=== PATIENT | female | born 1960 | race Caucasian/White ===

== ENCOUNTER 2016-05-23 15:48 | Emergency (ER) | payer OTHER ==
[~2016-05-23] VITALS: Ht 166.4 cm; Wt 78.9 kg
[~2016-05-23 15:48] MED LIST: AVELOX400 MG PO; FLEXERIL10 MG PO; IBU-6600 MG PO; KEFLEX500 M1 PO; MOTRIN 600 MG600 MG PO; MOTRIN600 MG PO; MOTRIN800 MG PO; OXYCODONE5 MG PO
--- NOTE | 2016-05-23 17:32 | ED MVC/FALL/TRAUMA COMPLAINT ---
History of Present Illness General Chief Complaint: General Adult Stated Complaint: LADDER FELL ON HER, RIGHT SIDED PAIN Source: patient Exam Limitations: no limitations Vital Signs & Intake/Output Vital Signs & Intake/Output Vital Signs Date Time Temp Pulse Resp B/P Pulse O2 O2 Flow FiO2 Ox Delivery Rate 05/23 1612 97.0 81 20 149/77 98 Room Air Allergies Coded Allergies: povidone-iodine (From BETADINE) (Intermediate, NAUSEA 05/23/16) soap (From BETADINE) (Intermediate, NAUSEA 05/23/16) Reconcile Medications Albuterol Sulfate (Proair Hfa) 90 MCG HFA.AER.AD 2 PUF INH Q4-6 PRN PRN ASTHMA (Reported) Aspirin (Ecotrin*) 81 MG TABLET.DR 1 TAB PO DAILY HEART/BLOOD (Reported) Cephalexin (Keflex) 500 MG CAPSULE 1 CAP PO TID cellulitis Cyclosporine (Restasis) 0.05 % DROPERETTE 1 GTT OPH BID BOTH EYES (Reported) Fluticasone Propionate 50 MCG/ACTUATION SPRAY.SUSP 2 SPRAY NASB DAILY ALLERGIES (Reported) Fluticasone/Salmeterol (Advair 250-50 Diskus) 250 MCG-50 MCG/DOSE BLST.W.DEV 1 PUF INH BID ASTHMA (Reported) Lisinopril 10 MG TABLET 1 TAB PO DAILY BP (Reported) Metformin HCl 500 MG TABLET 1 TAB PO DAILY DM (Reported) Triage Note: PT TO ED WITH C/O RIGHT BACK "GASH" AND RIGHT ARM BRUISING S/P LADDER FELL ON ME". INCIDENT HAPPENED AROUND NOON TIME TODAY. Triage Nurses Notes Reviewed? yes Onset: Abrupt Duration: constant Timing: single episode today Severity: moderate Severity Numbers: 5 Method of Injury: direct blow Loss of Consciousness: no loss of consciousness HPI: Patient is a 55-year-old female who presents emergency room stating that today in the standing position patient had a ladder fall on her where she braced the latter to strike her body with her right forearm were direct trauma had occurred and subsequently the ladder struck patient to the scapular region of her back resulting in skin abrasions. Patient denies any head strike. Patient did take ibuprofen with relief prior to arrival. No bleeding has occurred. Denies any shortness of breath. Denies any wrist pain and elbow pain neck pain or low back pain. Past History Travel History Traveled to [place] past 21 day No Medical History Any Pertinent Medical History? see below for history Neurological: NONE EENT: NONE Cardiovascular: hypertension Respiratory: asthma, pleurisy Gastrointestinal: NONE Hepatic: hepatitis B Renal: NONE Musculoskeletal: NONE Psychiatric: NONE Endocrine: NIDDM Blood Disorders: NONE Cancer(s): NONE LAWYER REAL ESTATE/Reproductive: NONE Surgical History Surgical History: non-contributory Psychosocial History What is your primary language Bahamian Tobacco Use: Never used ETOH Use: denies use Illicit Drug Use: denies illicit drug use Family History Hx Contributory? No Review of Systems Review of Systems Constitutional: Reports: no symptoms. Eyes: Reports: no symptoms. Ears, Nose, Throat, Mouth: Reports: no symptoms. Respiratory: Reports: no symptoms. Cardiovascular: Reports: no symptoms. Gastrointestinal/Abdominal: Reports: no symptoms. Genitourinary: Reports: no symptoms. Musculoskeletal: Reports: see HPI. Skin: Reports: see HPI, change in skin color. Neurological/Psychological: Reports: no symptoms. All Other Systems: Reviewed and Negative Physical Exam Physical Exam General Appearance: no apparent distress, alert, comfortable Comments: Well-developed well-nourished person in no acute distress HEENT: Normal EENT exam, extraocular motion intact, no nystagmus. Pupils equally round and reactive to light and accommodation. Nose is atraumatic. External auditory canal and Tympanic membranes clear. Pharynx normal. No swelling or edema. Neck: Supple, no lymphadenopathy, normal range of motion without pain or tenderness No central spinous tenderness Back: Nontender, no CVA tenderness. No central spinous tenderness Cardiovascular: Regular rate and rhythms no murmurs rubs or gallops, normal JVP Respiratory: Chest nontender. No respiratory distress.breath sounds clear to auscultation bilaterally Abdomen: Soft, nontender nondistended, no appreciable organomegaly. Normal bowel sounds. No ascites Extremity: No edema, no calf tenderness to palpation, normal and equal pulses. Bilateral upper extremity myotomes dermatomes DTRs intact full active range of motion Neuro: Alert oriented x3, motor sensory normal, Skin: No appreciable rash on exposed skin, skin is warm and dry. Psych: Mood and affect is normal, memory and judgment is normal. Diagram Body: 1) Noticed skin abrasion with mild point tenderness noted no step-off deformity Clear lungs to auscultation no respiratory distress 2) Noted swelling ecchymosis and mild point tenderness noted to midforearm skin intact. Range of motion with distal and proximal joints Core Measures ACS in differential dx? No Severe Sepsis Present: No Septic Shock Present: No Progress Differential Diagnosis: abd injury, C/T/L spine injury, ext injury, ICH, pelvis injury, pnemothorax, spinal cord injury Plan of Care: Orders Procedure Date/time Status XRY-RIBS UNILATERAL-RIGHT 05/23 1736 Active XRY-FOREARM, RIGHT 05/23 1736 Active Diagnostic Imaging: Viewed by Me: Radiology Read. Radiology Impression: no fracture Comments: PATIENT: KALYANI CARTAGENA PRESENT AGE: 55 PATIENT ACCOUNT NO: [id number] : 56 LOCATION: [facility] ORDERING PHYSICIAN: GUCCI TROTTER SERVICE DATE: 05/23/16 EXAM TYPE: RAD - XRY-RIBS UNILATERAL-RIGHT EXAMINATION: XR RIBS, RIGHT CLINICAL INFORMATION: Trauma. COMPARISON: None TECHNIQUE: 3 views of the right ribs were obtained. Expiratory PA chest. FINDINGS: Lungs are clear. No consolidation, pneumothorax, or pleural effusion. The cardiomediastinal silhouette and pulmonary vasculature are normal. Osseous structures are unremarkable. Ribs are intact. No fractures are identified. IMPRESSION: Unremarkable examination. DICTATED BY: VILMA MORRIS MD Departure Departure Disposition: HOME OR SELF CARE Condition: Stable Clinical Impression Primary Impression: Contusion of forearm, right Secondary Impressions: Contusion of rib on right side Referrals: MAIKOL NUÑEZ,CHRISTINE CARRINGTON (PCP/Family) Additional Instructions: As discussed begin icing the area directly 20 minutes every 2 hours, begin ibuprofen 3 tablets OF 200 mg every 8 hours for pain and inflammation. If no better in one week follow up with orthopedic Dr. Padilla. If symptoms worsen return to emergency room. Departure Forms: Customer Survey General Discharge Information
[2016-05-23] MEDS ORDERED: METFORMIN HCL500 M3 PO (18:38)
[2016-05-23] MEDS ORDERED: FLUTICASONE PRO16 GM NASB (18:39)
[2016-05-23] MEDS ORDERED: ASPIRIN EC81 M1 PO (18:39)
[2016-05-23] MEDS ORDERED: PROAIR HFA8.5 GM INH (18:39)
[2016-05-23] MEDS ORDERED: LISINOPRIL10 M1 PO (18:39)
[2016-05-23] MEDS ORDERED: ADVAIR 250-501 EACH INH (18:39)
[2016-05-23] MEDS ORDERED: RESTASIS1 EACH OPH (18:39)
--- NOTE | 2016-05-23 18:45 | RADIOLOGY REPORT ---
EXAMINATION: XR FOREARM, RIGHT CLINICAL INFORMATION: Trauma. COMPARISON: None TECHNIQUE: AP and lateral views of the right forearm were obtained. FINDINGS: The bones and soft tissues are normal. No fracture. Imaged portions of the elbow and wrist are unremarkable. IMPRESSION: Normal right forearm.
--- NOTE | 2016-05-23 18:47 | RADIOLOGY REPORT ---
EXAMINATION: XR RIBS, RIGHT CLINICAL INFORMATION: Trauma. COMPARISON: None TECHNIQUE: 3 views of the right ribs were obtained. Expiratory PA chest. FINDINGS: Lungs are clear. No consolidation, pneumothorax, or pleural effusion. The cardiomediastinal silhouette and pulmonary vasculature are normal. Osseous structures are unremarkable. Ribs are intact. No fractures are identified. IMPRESSION: Unremarkable examination.
[2016-05-23 19:48] VITALS: BP 145/66
== END 2016-05-23 19:49 ==
LOC: ERH 15:48
DX: S50.11XA Contusion of right forearm, initial encounter (principal); S20.211A Contusion of right front wall of thorax, initial encounter; W22.8XXA Striking against or struck by other objects, initial encounter; Y92.9 Unspecified place or not applicable; Y93.9 Activity, unspecified
CPT/HCPCS: 71100-RT; 73090-RT

== ENCOUNTER 2016-07-04 18:28 | Emergency (ER) | payer OTHER ==
[~2016-07-04] VITALS: Ht 165.1 cm; Wt 77.1 kg
[~2016-07-04 18:28] MED LIST changes: +ADVAIR 250-501 EACH INH; +ASPIRIN EC81 M1 PO; +FLUTICASONE PRO16 GM NASB; +LISINOPRIL10 M1 PO; +METFORMIN HCL500 M3 PO; +PROAIR HFA8.5 GM INH; +RESTASIS1 EACH OPH
--- NOTE | 2016-07-04 19:12 | RADIOLOGY REPORT ---
EXAMINATION: XR CHEST CLINICAL INFORMATION: Productive cough with fever. COMPARISON: 05/23/2016 TECHNIQUE: 2 views of the chest were obtained. FINDINGS: The lungs are well expanded. There is a new lingular opacity. The remainder of the lungs are clear. No pleural effusion or pneumothorax. The cardiomediastinal silhouette is within normal limits. No acute osseous abnormality. IMPRESSION: Lingular opacity suspicious for pneumonia. This is new from the recent prior on 05/23/2016.
--- NOTE | 2016-07-04 19:59 | ED GENERAL ADULT ---
History of Present Illness General Chief Complaint: Upper Respiratory Sx/Fever Stated Complaint: BODY ACHES, LARYNGITIS, COUGHING,CHEST CONGESTION Source: patient, family Exam Limitations: no limitations Allergies Coded Allergies: povidone-iodine (From BETADINE) (Intermediate, NAUSEA 05/23/16) soap (From BETADINE) (Intermediate, NAUSEA 05/23/16) Triage Note: REPORTS SORE THROAT AND INABILITY TO SPEAK. ALSO REPORTS CHILLS AND BODY ACHES SINCE LAST WEEK. SHE ALSO REPORTS TO HAVE EXPERIENCED A SHARP PAIN ON HER LEFT AXILLA AND IT WENT AWAY AFTER TAKING MOTRIN. SHE WAS PRESCRIBED Z-PACK BY DR STONER HOWEVER NOT FEELING WELL FOR SHE DECIDED TO COME TO THE ED FOR EVALUATION. Triage Nurses Notes Reviewed? yes HPI: This is a 56 yo female with PMH of diabetes on metformin, remote hx of hepatitis B followed by Dr. Barkley (sp?), asthma- sees Dr. 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 She comes in with CC of shaking, chill, subjective and fever. She also endorses a loss of voice, cough with sputum and "specks of blood." Pt stated that these symptoms were all of abrupt onset today. However, she did note an episoe of "stabbing pain" under her left axilla on Monday 3 am. The pain woke her up from sleep. She has recently been traveling; was in [place] all last week in [place]. Denies any sick contacts but does work in [employer] where she comes in contact with sick individuals. Never a smoker, denies IVDA and etoh. She called Dr. Richardson's office this AM; was prescribed azithromycin. Took first dose around 3 PM. (WAN NUÑEZ,[facility]) Vital Signs & Intake/Output Vital Signs & Intake/Output Vital Signs Date Time Temp Pulse Resp B/P B/P Pulse O2 O2 Flow FiO2 Mean Ox Delivery Rate 07/04 2121 99.3 105 18 141/69 95 Room Air 07/04 1859 101.5 07/04 1848 101.5 128 18 177/85 98 Room Air ED Intake and Output 07/05 0000 07/04 1200 Intake Total 1000 Output Total Balance 1000 Intake, IV 1000 Patient 77.111 kg Weight Weight Reported by Patient Measurement Method Reconcile Medications Albuterol Sulfate (Proair Hfa) 90 MCG HFA.AER.AD 2 PUF INH Q4-6 PRN PRN ASTHMA (Reported) Aspirin (Ecotrin*) 81 MG TABLET.DR 1 TAB PO DAILY HEART/BLOOD (Reported) Azithromycin 250 MG TABLET 1 DP PO AD ANTIBIOTIC (Reported) 2 the first day followed by 1 for days 2-5 Benzonatate (Tessalon Perle) 100 MG CAPSULE 1 CAP PO TID COUGH Cyclosporine (Restasis) 0.05 % DROPERETTE 1 GTT OPH BID BOTH EYES (Reported) Fluticasone Propionate 50 MCG/ACTUATION SPRAY.SUSP 2 SPRAY NASB DAILY ALLERGIES (Reported) Fluticasone/Salmeterol (Advair 250-50 Diskus) 250 MCG-50 MCG/DOSE BLST.W.DEV 1 PUF INH BID ASTHMA (Reported) Lisinopril 10 MG TABLET 1 TAB PO DAILY BP (Reported) Metformin HCl 500 MG TABLET 1 TAB PO DAILY DM (Reported) (MARIAELENA NUÑEZ,DANIEL Hinojosa) Past History Travel History Traveled to [place] past 21 day No Medical History Any Pertinent Medical History? see below for history Neurological: NONE EENT: NONE Cardiovascular: hypertension Respiratory: asthma, pleurisy Gastrointestinal: NONE Hepatic: hepatitis B Renal: NONE Musculoskeletal: NONE Psychiatric: NONE Endocrine: NIDDM Blood Disorders: NONE Cancer(s): NONE CLERK OF COURT/Reproductive: NONE Surgical History Surgical History: non-contributory Psychosocial History What is your primary language Prydeinig Tobacco Use: Never used ETOH Use: denies use Family History Hx Contributory? No (DUSTY BLAS MD) Review of Systems Review of Systems Constitutional: Reports: chills, diaphoresis, fever, malaise, weakness. EENTM: Reports: throat pain. Denies: blurred vision, visual changes, hearing changes, nasal congestion. Respiratory: Reports: cough, hemoptysis, sputum production. Denies: orthopnea, short of breath, wheezing. Cardiovascular: Denies: edema, palpitations. GI: Denies: abdominal pain, constipation, diarrhea, distention, nausea, vomiting. Genitourinary: Reports: frequency. Denies: pain. Musculoskeletal: Reports: muscle stiffness. Denies: joint pain. Skin: Denies: rash. (DUSTY BLAS MD) Review of Systems Neurological/Psychological: Reports: no symptoms. Hematologic/Endocrine: Reports: no symptoms. Immunologic/Allergic: Reports: no symptoms. All Other Systems: Reviewed and Negative (MARIAELENA NUÑEZ,DANIEL Hinojosa) Physical Exam Physical Exam General Appearance: well developed/nourished, alert, awake, comfortable Head: atraumatic, normal appearance Eyes: Bilateral: normal appearance, PERRL, EOMI. Ears, Nose, Throat: moist mucus membranes, erythematous pharynx. No exudates , No sinus drainage. Neck: supple, No cervical, pre/post-auricular LN. Respiratory: chest non-tender, no respiratory distress, quiet respiration, decreased breath sounds, no wheezes Cardiovascular: tachycardia Gastrointestinal: soft, non-tender Core Measures ACS in differential dx? No Severe Sepsis Present: No Septic Shock Present: No (WAN NUÑEZ,DUSTY) Physical Exam Extremities: normal inspection, normal capillary refill, normal range of motion, no edema Neurologic/Psych: no motor/sensory deficits, awake, alert, oriented x 3, normal mood/affect Skin: intact, normal color, warm/dry Lymphatic: no anterior cervical samm Core Measures CVA/TIA Diagnosis: No (MARIAELENA NUÑEZ,DANIEL Hinojosa) Progress Differential Diagnoses I considered the following diagnoses in my evaluation of the patient: [penumonia , bronchitis, sepsis, asthma, Lady Wyndamyeres syndrome ] Negative lactic acid negative troponin Note that patient left prior to her positive strep result was confirmed with her. She is already on azithromycin which cover the orgranism. CXR Impression: lingular infiltrate Initial ED EKG: MO depression in lead V1 Comments: 8:40 PM: Pt has fever, tachycardia and lingular infligrate; concern for sepsis 2 /2 PNA. Will obtain further labs. Started IV antibiotics for CAP. (WAN NUÑEZ,DUSTY) Differential Diagnoses I considered the following diagnoses in my evaluation of the patient: Plan of Care: Orders Procedure Date/time Status Add-on Test (ER Only) 07/04 2128 Active TROPONIN LEVEL 07/05 2027 Complete LACTIC ACID 07/05 2027 Complete THROAT CULTURE W/QUICK STREP 07/04 2013 Complete EKG 07/04 2013 Active BLOOD CULTURE 07/05 2007 Active CBC WITHOUT DIFFERENTIAL 07/05 2007 Complete B-TYPE NATRIURETIC PEP (BNP) 07/05 2007 Complete BASIC ELECTROLYTES PLUS BUN&CR 07/05 2007 Complete Laboratory Tests 07/04/165: Troponin I Cancelled 07/04/162027: Anion Gap 10, Estimated GFR > 60, BUN/Creatinine Ratio 23.3, Lactic Acid 0.7, Troponin I < 0.01, [id number] Pept 266 H, CBC w Diff NO MAN DIFF REQ, RBC 4.25, MCV 86.8, MCH 29.0, RDW 13.8, MPV 8.7, Gran % 78.5 H, Lymphocytes % 9.2 L, Monocytes % 7.2, Eosinophils % 4.9, Basophils % 0.2, Absolute Granulocytes 6.1, Absolute Lymphocytes 0.7 L, Absolute Monocytes 0.6, Absolute Eosinophils 0.4, Absolute Basophils 0, PUBS MCHC 33.4 Microbiology 07/05 2027 BLOOD: Blood Culture - RECD 07/04 2020 BLOOD: Blood Culture - RECD Departure Departure Disposition: HOME OR SELF CARE Condition: Stable Clinical Impression Primary Impression: Viral pneumonia Secondary Impressions: Bronchitis Referrals: CHRISTINE LITTLEJOHN (PCP/Family) Additional Instructions: 1. Please follow up with your PCP and grassroots organizer in 24-48 hrs after discharge 2. Continue to take your azithromycin at home 3. If your fever returns or your have SOB, chest pain then return to ED Departure Forms: Customer Survey General Discharge Information (WAN NUÑEZ,DUSTY) Departure Prescriptions: Current Visit Scripts Benzonatate (Tessalon Perle) 1 CAP PO TID #30 CAP PA/TEXTILE BAG SEWER Co-Sign Statement Statement: ED Attending supervision documentation- [] I saw and evaluated the patient. I have also reviewed all the pertinent lab results and diagnostic results. I agree with the findings and the plan of care as documented in the PA's/TEXTILE BAG SEWER's documentation. [] I have reviewed the ED Record and agree with the PA's/TEXTILE BAG SEWER's documentation. [] Additions or exceptions (if any) to the PAs/TEXTILE BAG SEWER's note and plan are summarized below: [] Resident Co-Sign Statement Statement: ED Attending supervision documentation- [X] I saw and evaluated the patient. I have also reviewed all the pertinent lab results and diagnostic results. I agree with the findings and the plan of care as documented in the Resident's documentation. [X] I have reviewed the ED Record and agree with the Resident's documentation. [] Additions or exceptions (if any) to the Resident's note and plan are summarized below: [I have personally seen and examined this patient. I read note and agree with that has been written. Patient has a lingular infiltrate. Patient started Zithromax today. Patient given a gram of Rocephin in the emergency department. Patient has a history of pleurisy. Patient is stable for discharge.] (MARIAELENA NUÑEZ,DANIEL Hinojosa) Critical Care Note Critical Care Note Critical Care Time: non-applicable (MARIAELENA NUÑEZ,DANIEL Hinojosa) ED Attending Observation Initial Observation Note: I have seen and personally examined KALYANI CARTAGENA on 07/04/16 at 2038. I agree with the current emergency department documentation. The disposition (admission or discharge) is uncertain at this time, she needs a period of observation for the following reason(s): The ED Nurse caring for this patient has been personally informed as to what the patient is being observed for. (WAN NUÑEZ,DUSTY)
[2016-07-04 20:41] LABS: ABSOLUTE BASOPHIL COUNT 0 /CUMM (0.0-0.2); ABSOLUTE EOSINOPHIL COUNT 0.4 /CUMM (0.0-0.7); ABSOLUTE GRANULOCYTE CT 6.1 /CUMM (1.4-6.5); ABSOLUTE LYMPH COUNT 0.7 /CUMM (1.2-3.4); ABSOLUTE MONOCYTE COUNT 0.6 /CUMM (0.10-0.60); BASOPHIL % 0.2 % (0.0-2.0); EOSINOPHIL % 4.9 % (0-5); HEMATOCRIT 36.9 % (37-47); MEAN CORPUSCULAR HGB CONC 33.4 G/DL (33.0-37.0); MEAN CORPUSCULAR VOLUME 86.8 FL (81.0-99.0); MEAN PLATELET VOLUME 8.7 FL (7.4-10.4); PLATELET COUNT 199 /CUMM (130-400); RBC DISTRIBUTION WIDTH 13.8 % (11.5-14.5); RED BLOOD CELL CT 4.25 /CUMM (4.20-5.40); WHITE BLOOD CELL COUNT 7.8 /CUMM (4.8-10.8)
[2016-07-04 20:44] LABS: GRANULOCYTE % 78.5 % (42.2-75.2)
[2016-07-04] MEDS ORDERED: AZITHROMYCIN250 M1 PO (21:17)
[2016-07-04 21:22] VITALS: BP 141/69
[2016-07-04] MEDS ORDERED: TESSALON PERLE100 M1 PO (22:03)
== END 2016-07-04 22:37 ==
LOC: ERH 18:28
PROVIDERS: Student in an Organized Health Care Education/Training Program
DX: J12.9 Viral pneumonia, unspecified (principal); J40 Bronchitis, not specified as acute or chronic; R50.9 Fever, unspecified; J04.0 Acute laryngitis
CPT/HCPCS: 82436; 87040; 93005; 93010; 96374; J0696

== ENCOUNTER 2017-05-27 02:44 | Emergency (ER) | payer OTHER ==
[~2017-05-27] VITALS: Ht 165.1 cm; Wt 78.9 kg
[~2017-05-27 02:44] MED LIST changes: +AZITHROMYCIN250 M1 PO; +TESSALON PERLE100 M1 PO
--- NOTE | 2017-05-27 03:10 | ED CARDIAC/CP/PALPITATIONS ---
See Addendum History of Present Illness General Chief Complaint: Palpitations Stated Complaint: PT C/O PALPITATIONS Source: patient, family, old records Exam Limitations: no limitations Vital Signs & Intake/Output Vital Signs & Intake/Output Vital Signs Date Time Temp Pulse Resp B/P B/P Pulse O2 O2 Flow FiO2 Mean Ox Delivery Rate 05/27 0617 98.0 84 18 140/66 98 Room Air 05/27 0449 96.5 85 18 168/73 96 Room Air 05/27 0304 98 Room Air 05/27 0255 98.0 94 16 162/76 99 Room Air Allergies Coded Allergies: povidone-iodine (From BETADINE) (Intermediate, NAUSEA 05/23/16) soap (From BETADINE) (Intermediate, NAUSEA 05/23/16) Reconcile Medications Albuterol Sulfate (Proair Hfa) 90 MCG HFA.AER.AD 2 PUF INH Q4-6 PRN PRN ASTHMA (Reported) Aspirin (Ecotrin*) 81 MG TABLET.DR 1 TAB PO DAILY HEART/BLOOD (Reported) Azithromycin 250 MG TABLET 1 DP PO AD ANTIBIOTIC (Reported) 2 the first day followed by 1 for days 2-5 Benzonatate (Tessalon Perle) 100 MG CAPSULE 1 CAP PO TID COUGH Cyclosporine (Restasis) 0.05 % DROPERETTE 1 GTT OPH BID BOTH EYES (Reported) Fluticasone Propionate 50 MCG/ACTUATION SPRAY.SUSP 2 SPRAY NASB DAILY ALLERGIES (Reported) Fluticasone/Salmeterol (Advair 250-50 Diskus) 250 MCG-50 MCG/DOSE BLST.W.DEV 1 PUF INH BID ASTHMA (Reported) Lisinopril 10 MG TABLET 1 TAB PO DAILY BP (Reported) Metformin HCl 500 MG TABLET 1 TAB PO DAILY DM (Reported) Triage Note: RECEIVED PT TO ROOM 3 WITH CO HEART RACING AND GENERALLY NOT FEELING GOOD - HAD RECOVERED FROM NVD LAST WEEK AND WAS FEELING BETTER UNTIL TONIGHTS EPISODE -CONGESTED NOSE AND HEAD Triage Nurses Notes Reviewed? yes HPI: Patient was laying in bed trying to go to sleep when it felt like her heart began racing and skipping beats. Pressure while later she began to experience a substernal chest pressure radiating underneath her left breast and her left arm. The pressure was constant however now it is gone. It lasted in total approximately an hour. There was slight shortness of breath earlier but that has also resolved. Patient states that she has had a viral URI for the past week. She has had subjective fevers and occasional diarrhea. No nausea or vomiting. This is the first time that she had chest pain. (Adonay Wilkinson MD) Past History Travel History Traveled to [place] past 21 day No Medical History Any Pertinent Medical History? see below for history Neurological: NONE EENT: NONE Cardiovascular: hypertension Respiratory: asthma, pleurisy Gastrointestinal: NONE Hepatic: hepatitis B Renal: NONE Musculoskeletal: NONE Psychiatric: NONE Endocrine: NIDDM Blood Disorders: NONE Cancer(s): NONE COATER BRAKE LININGS/Reproductive: NONE Surgical History Surgical History: non-contributory Psychosocial History What is your primary language Mohawk Tobacco Use: Never used ETOH Use: denies use Illicit Drug Use: denies illicit drug use Family History Hx Contributory? No (Adonay Wilkinson MD) Review of Systems Review of Systems Constitutional: Reports: no symptoms. EENTM: Reports: no symptoms. Respiratory: Reports: see HPI. Cardiovascular: Reports: palpitations. GI: Reports: no symptoms. Genitourinary: Reports: no symptoms. Musculoskeletal: Reports: no symptoms. Skin: Reports: no symptoms. Neurological/Psychological: Reports: no symptoms. Hematologic/Endocrine: Reports: no symptoms. Immunologic/Allergic: Reports: no symptoms. All Other Systems: Reviewed and Negative (Adonay Wilkinson MD) Physical Exam Physical Exam General Appearance: well developed/nourished, alert, awake Head: atraumatic, normal appearance Eyes: Bilateral: PERRL, EOMI. Ears, Nose, Throat: normal pharynx, normal ENT inspection, hearing grossly normal Neck: normal inspection, supple, full range of motion Respiratory: normal breath sounds, chest non-tender, no respiratory distress, lungs clear Cardiovascular: regular rate/rhythm, normal peripheral pulses Gastrointestinal: normal bowel sounds, soft, non-tender, no organomegaly Back: normal inspection, normal range of motion Extremities: normal inspection, normal capillary refill, normal range of motion, no edema Neurologic/Psych: no motor/sensory deficits, awake, alert, oriented x 3, normal gait, normal mood/affect Skin: intact, normal color, warm/dry Lymphatic: no anterior cervical samm Core Measures ACS in differential dx? Yes CVA/TIA Diagnosis No Sepsis Present: No Sepsis Focused Exam Completed? No (Adonay Wilkinson MD J.) Progress Differential Diagnosis: AMI, atrial fibrillation, hyperthyroid, musculoskeletal pain, myocarditis, pericarditis, pneumonia, pneumothorax, pulmonary embolism Plan of Care: Orders Procedure Date/time Status Heart Healthy Diet 05/27 B Active TROPONIN LEVEL 05/27 0700 Complete EKG 05/27 0700 Active RAPID VIRAL INFLUENZA A 05/27 0324 Complete TOTAL TRIODOTHYROXINE 05/27 0315 Complete FREE T4 05/27 031 Complete Telemetry/Chemical Pathologist 05/27 030 Active TSH REFLEX 05/27 030 Complete TROPONIN LEVEL 05/27 030 Complete D-DIMER 05/27 030 Complete COMPREHENSIVE METABOLIC PANEL 05/27 030 Complete CBC WITHOUT DIFFERENTIAL 05/28 307 Complete EKG 05/27 0247 Active Laboratory Tests 05/27/17 0655: Troponin I < 0.01 05/27/17 031: Anion Gap 12, Estimated GFR > 60, BUN/Creatinine Ratio 28.3 H, Glucose 119 H, Calcium 9.4, Total Bilirubin 0.9, AST 19, ALT 26, Alkaline Phosphatase 57, Troponin I < 0.01, Total Protein 7.2, Albumin 4.1, Globulin 3.1, Albumin/ Globulin Ratio 1.3, Free T4 0.96, Total T3 1.56, TSH &T3 &Free T4 Intrp 5.110 H , D-Dimer High Sensitivty < 200, CBC w Diff NO MAN DIFF REQ, RBC 4.35, MCV 87.5, MCH 29.6, MCHC 33.8, RDW 13.7, MPV 8.4, Gran % 46.5, Lymphocytes % 33.4, Monocytes % 8.9, Eosinophils % 10.9 H, Basophils % 0.3, Absolute Granulocytes 3.9, Absolute Lymphocytes 2.8, Absolute Monocytes 0.8 H, Absolute Eosinophils 0.9, Absolute Basophils 0 Microbiology 05/27 0330 NASOPHARYN: Influenza Virus A & B Rapid Smear - COMP Diagnostic Imaging: Viewed by Me: Radiology Read. Discussed w/RAD: Radiology Read. CXR Impression: PATIENT: KALYANI CARTAGENA PRESENT AGE: 56 PATIENT ACCOUNT NO: [id number] : 56 LOCATION: [facility] ORDERING PHYSICIAN: Adonay Wilkinson MD SERVICE DATE: 05/27/17-307 EXAM TYPE: RAD - XRY- PORTABLE CHEST XRAY EXAMINATION: XR PORTABLE CHEST CLINICAL INFORMATION: Chest pain COMPARISON: 04/18/2017 TECHNIQUE: Portable frontal view of the chest was obtained. FINDINGS: Low lung volumes with bronchovascular crowding. No consolidation, edema, or effusion. No pneumothorax. The cardiomediastinal silhouette is within normal limits. No osseous abnormality. IMPRESSION: Unremarkable examination. DICTATED BY: David Trejo MD DATE/TIME DICTATED: 05/27/17357 MANAGER SUPPLIER:KELSEY DATE/TIME TRANSCRIBED:05/27/17357 CONFIDENTIAL, DO NOT COPY WITHOUT APPROPRIATE AUTHORIZATION. <Electronically signed in Other Vendor System> SIGNED BY: David Trejo MD 05/27/17 0403 Initial ED EKG: NSR, nonspecific ST T wave chg Prior EKG: unchanged Rhythm Strip: normal sinus rhythm Hand-Off Endorsed To: Rayray Richey MD Endorsed Time: 0700 Pending: labs (Jaja NUÑEZ,Adonay Hinojosa) Comments: 05/27/2017 7:08:43 AM patient signed out to me by Dr. Wilkinson at shift chart changer. (Rossi NUÑEZ,Rayray Chandra) Departure Departure Condition: Stable Referrals: Ra NUÑEZ,Nora Monsivais APRN (PCP/Family) Departure Forms: Customer Survey General Discharge Information (Jaja NUÑEZ,Adonay Hinojosa) Departure Disposition: HOME OR SELF CARE Clinical Impression Primary Impression: Chest pain, unspecified Qualifiers: Chest pain type: unspecified Qualified Code: R07.9 - Chest pain, unspecified Secondary Impressions: Palpitation Additional Instructions: Rest, no exertion or heavy lifting. Follow-up with Dr. Knapp on Monday. Notify your primary care doctor of this emergency department visit and treatment plan. Return if any concerns or sudden worsening. Please note that there might be incidental findings in your evaluation that are unrelated to the current emergency department visit. Please notify your primary care doctor about this emergency department visit in order to obtain and review all of the testing performed so that these incidental findings can be monitored as needed. If you had an x-ray performed, please understand that some fractures may not be seen on the initial set of x-rays. If your symptoms persist you might need a repeat set of x-rays to check for such a fracture. If you had a laceration evaluated, please understand that foreign bodies such as glass or wood may not be visible to the naked eye or on plain x-rays. If the wound becomes red, swollen, increasingly more painful or if there is any drainage from the wound, please have it reevaluated by a physician for the possibility of a retained foreign body. If you're unable to follow up as outlined in the discharge instructions please return to the emergency department. Thank you for choosing the [facility] Emergency Department for your care. It was a pleasure to serve you today. Rayray Richey M.D. [facility] (Rossi NUÑEZ,Rayray Chandra) Critical Care Note Critical Care Note Critical Care Time: non-applicable (Jaja NUÑEZ,Adonay Hinojosa)
[2017-05-27 03:26] LABS: ABSOLUTE BASOPHIL COUNT 0 /CUMM (0.0-0.2); ABSOLUTE EOSINOPHIL COUNT 0.9 /CUMM (0.0-0.7); ABSOLUTE GRANULOCYTE CT 3.9 /CUMM (1.4-6.5); ABSOLUTE LYMPH COUNT 2.8 /CUMM (1.2-3.4); ABSOLUTE MONOCYTE COUNT 0.8 /CUMM (0.10-0.60); BASOPHIL % 0.3 % (0.0-2.0); EOSINOPHIL % 10.9 % (0-5); GRANULOCYTE % 46.5 % (42.2-75.2); MEAN CORPUSCULAR HGB 29.6 PG (27.0-31.0); MEAN CORPUSCULAR HGB CONC 33.8 G/DL (33.0-37.0); MEAN CORPUSCULAR VOLUME 87.5 FL (81.0-99.0); MEAN PLATELET VOLUME 8.4 FL (7.4-10.4); PLATELET COUNT 255 /CUMM (130-400); RBC DISTRIBUTION WIDTH 13.7 % (11.5-14.5); RED BLOOD CELL CT 4.35 /CUMM (4.20-5.40); WHITE BLOOD CELL COUNT 8.5 /CUMM (4.8-10.8)
--- NOTE | 2017-05-27 04:03 | RADIOLOGY REPORT ---
EXAMINATION: XR PORTABLE CHEST CLINICAL INFORMATION: Chest pain COMPARISON: 04/18/2017 TECHNIQUE: Portable frontal view of the chest was obtained. FINDINGS: Low lung volumes with bronchovascular crowding. No consolidation, edema, or effusion. No pneumothorax. The cardiomediastinal silhouette is within normal limits. No osseous abnormality. IMPRESSION: Unremarkable examination.
[2017-05-27 08:32] VITALS: BP 136/74
== END 2017-05-27 09:41 ==
LOC: ERH 02:44
PROVIDERS: Emergency Medicine
DX: R00.2 Palpitations (principal); R07.89 Other chest pain; I10 Essential (primary) hypertension; J45.909 Unspecified asthma, uncomplicated; B19.10 Unspecified viral hepatitis B without hepatic coma; E11.9 Type 2 diabetes mellitus without complications
CPT/HCPCS: 71045; 87804; 87804-59; 93005; 93010; 96360